=== PATIENT | female | born 1970 | race African-American/Black ===

== ENCOUNTER 2017-07-26 04:24 | Emergency (ER) | payer OTHER, SELFPAY ==
[2017-07-26 05:00] LABS: #Basophils 0.1 thou/uL (0.0-0.2); #Eosinphils 0.3 thou/uL (0.0-0.7); #Lymphocytes 2.7 thou/uL (1.20-3.40); #Monocytes 0.7 thou/uL (0.11-0.59); #Neutrophils 4.6 thou/uL (1.40-6.50); %Basophils 1.2 % (0.0-1.0); %Eosinophils 3.9 % (0.0-10.0); %Lymphocytes 32.7 % (21.0-51.0); %Monocytes 7.8 % (0.0-10.0); %Neutrophils 54.4 % (42.0-75.0); Hemoglobin 13.1 g/dL (12.0-16.0); Mean Corpuscular HGB CONC 31.5 g/dL (32.0-36.0); Mean Corpuscular Hemoglobin 28.9 pg (27.0-31.0); Mean Corpuscular Volume 91.6 fl (81.0-99.0); Platelet Count 294 thou/uL (130-400); RBC Distribution Width 13.9 % (11.5-14.5); Red Blood Cell (RBC) Count 4.55 mill/uL (4.20-5.40); White Blood Cell (WBC) Count 8.4 thou/uL (4.8-10.8)
[2017-07-26 05:22] LABS: ALT (SGPT) 17 U/L (8-55); AST (SGOT) 14 U/L (5-34); Albumin 3.8 g/dL (3.5-5.0); Alkaline Phosphatase 91 U/L (40-150); Anion Gap 15 mmol/L (10-20); BUN (Urea Nitrogen) 14 mg/dL (7.0-18.7); Bilirubin, Total 0.2 mg/dL (0.2-1.2); Calc. Creatinine Clearance 0 mL/min (70-130); Calcium 8.9 mg/dL (7.8-10.44); Carbon Dioxide 24 mmol/L (22-29); Chloride 106 mmol/L (98-107); Estimated GFR-MDRD 79; Globulin 3.7 g/dL (2.4-3.5); Glucose 97 mg/dL (70-105); Potassium 3.8 mmol/L (3.5-5.1); Protein, Total 7.5 g/dL (6.0-8.3); Sodium 141 mmol/L (136-145); Troponin I Less than 0.010 ng/mL (< 0.028)
== END 2017-07-26 06:20 | disposition home or self-care (01) ==
LOC: NAV ERS 04:24
DX: I16.0 Hypertensive urgency (principal); Z79.899 Other long term (current) drug therapy
CPT/HCPCS: 36415; 80053; 82553; 84484; 85025; 93005

== ENCOUNTER 2017-12-18 07:37 | Emergency (ER) | payer OTHER ==
[2017-12-18] MEDS ORDERED: Ibuprofen 200 MG TAB ONE (07:59)
--- NOTE | 2017-12-18 08:06 | RAD ---
RIGHT WRIST THREE VIEWS: History: Injury to right wrist. Pain. FINDINGS: Carpals appear normally aligned and intact. Distal radius and ulna appear intact. IMPRESSION: No evidence of acute fracture. POS: [id number]
== END 2017-12-18 08:15 | disposition home or self-care (01) ==
LOC: NAV ERS 07:37
DX: S63.91XA Sprain of unspecified part of right wrist and hand, initial encounter (principal); I10 Essential (primary) hypertension; X50.1XXA Overexertion from prolonged static or awkward postures, initial encounter; Z79.899 Other long term (current) drug therapy

== ENCOUNTER 2021-09-21 01:31 | Outpatient (CLI) | payer OTHER ==
[2021-09-21 02:18] LABS: SARS-CoV-2 NAA Rapid Test Not Detected (NotDetected)
== END 2021-09-21 01:32 | disposition home or self-care (01) ==
LOC: NAV OCC 01:31
PROVIDERS: ATTEND Family Medicine
DX: R05.9 Cough, unspecified (principal); Z20.822 Contact with and (suspected) exposure to COVID-19
CPT/HCPCS: U0002